=== PATIENT | female | born 1995 | race Caucasian/White ===

== ENCOUNTER 2020-10-05 | Emergency (ER) | payer SELFPAY ==
[2020-10-05] MEDS ORDERED: ALBUTEROL SUL0.083 % IN (19:47)
[2020-10-05 20:12] LABS: URINE BILIRUBIN - DIPSTICK NEGATIVE (NEGATIVE); URINE BLOOD DIPSTICK NEGATIVE (NEGATIVE); URINE CLARITY CLEAR; URINE COLOR YELLOW; URINE GLUCOSE - DIPSTICK NEGATIVE (NEGATIVE); URINE KETONE NEGATIVE (NEGATIVE); URINE LEUK ESTERASE NEGATIVE (Negative); URINE NITRITE - DIPSTICK NEGATIVE (Negative); URINE PH 6.5 (4.5-8.0); URINE PROTEIN - DIPSTICK NEGATIVE (NEG-TRACE); URINE UROBILINOGEN - DIPSTICK 0.2 E.U./dL (0.2)
[2020-10-05] MEDS ORDERED: MOTRIN400 MG/TAB PO (20:41)
== END 2020-10-05 21:00 | disposition home or self-care (01) | DRG 563 ==
PROVIDERS: Emergency Medicine
DX: S93.401A Sprain of unspecified ligament of right ankle, initial encounter (principal); X58.XXXA Exposure to other specified factors, initial encounter; Z20.2 Contact with and (suspected) exposure to infections with a predominantly sexual mode of transmission

== ENCOUNTER 2020-10-14 | Emergency (ER) | payer SELFPAY ==
[~2020-10-14] MED LIST: ALBUTEROL SUL0.083 % IN; MOTRIN400 MG/TAB PO
[2020-10-14 13:44] LABS: HEMOGLOBIN 14.1 g/dl (12.0-16.0); IMMATURE GRANULOCYTES 0.4 % (0.0-5.0); MEAN CELL VOLUME 88.6 fL CALC (80.0-100.0); MEAN CORPUSCULAR HGB 29.7 pG CALC (26.0-32.0); MEAN CORPUSCULAR HGB CONC 33.6 g/dL CAL (32.0-36.0); NEUT# 5.55 thou/uL (2.00-7.15); RED BLOOD COUNT 4.74 mill/uL (4.20-5.60); RED CELL DISTRI WIDTH 12.1 % (11.5-15.5)
[2020-10-14 13:48] LABS: URINE BILIRUBIN - DIPSTICK NEGATIVE (NEGATIVE); URINE BLOOD DIPSTICK NEGATIVE (NEGATIVE); URINE COLOR YELLOW; URINE GLUCOSE - DIPSTICK NEGATIVE (NEGATIVE); URINE KETONE NEGATIVE (NEGATIVE); URINE LEUK ESTERASE NEGATIVE (NEGATIVE); URINE PROTEIN - DIPSTICK NEGATIVE (NEG-TRACE); URINE SPECIFIC GRAVITY 1.015; URINE UROBILINOGEN - DIPSTICK 0.2 E.U./dL (0.2)
[2020-10-14 13:50] LABS: URINE NITRITE - DIPSTICK NEGATIVE (Negative)
[2020-10-14 14:03] LABS: ALBUMIN 4.4 g/dL (3.2-5.0); ALKALINE PHOSPHATASE 76 u/l (38-126); ANION GAP 13 (6-22 (CALC)); BILIRUBIN, TOTAL 0.7 mg/dL (0.0-1.4); BUN 12 mg/dL (7-17); BUN/CREATININE RATIO 17 (12-20 (CALC)); CARBON DIOXIDE 26 mmol/l (22-30); CHLORIDE 102 mmol/l (95-108); CREATININE 0.7 mg/dL (0.5-1.0); GFR > 60 ML/MIN (>=60 (CALC)); GFR FOR AFR.AMER. > 60 ML/MIN (>=60 (CALC)); LIPASE 89 u/l (23-300); POTASSIUM 4.2 mmol/l (3.5-5.1); SGOT/AST 22 u/l (14-36); SODIUM 137 mmol/l (137-146); TOTAL PROTEIN 7.5 g/dL (6.3-8.2)
== END 2020-10-14 16:20 | disposition home or self-care (01) | DRG 392 ==
DX: R10.13 Epigastric pain (principal); Z90.49 Acquired absence of other specified parts of digestive tract; Z20.822 Contact with and (suspected) exposure to COVID-19
CPT/HCPCS: Q9967

== ENCOUNTER 2020-11-29 14:13 | Emergency (ER) | payer SELFPAY ==
[~2020-11-29] VITALS: Ht 157.5 cm; Wt 97.7 kg
[2020-11-29 14:57] LABS: HEMATOCRIT 41.6 % (37.0-47.0); HEMOGLOBIN 14.1 g/dl (12.0-16.0); IMMATURE GRANULOCYTES 0.4 % (0.0-5.0); MEAN CELL VOLUME 86.1 fL CALC (80.0-100.0); MEAN CORPUSCULAR HGB 29.2 pG CALC (26.0-32.0); MEAN CORPUSCULAR HGB CONC 33.9 g/dL CAL (32.0-36.0); NEUT# 6.68 thou/uL (2.00-7.15); RED BLOOD COUNT 4.83 mill/uL (4.20-5.60); RED CELL DISTRI WIDTH 12.1 % (11.5-15.5)
[2020-11-29 14:58] LABS: URINE BILIRUBIN - DIPSTICK NEGATIVE (NEGATIVE); URINE BLOOD DIPSTICK TRACE-LYSED (NEGATIVE); URINE COLOR YELLOW; URINE GLUCOSE - DIPSTICK NEGATIVE (NEGATIVE); URINE KETONE TRACE mg/dL (NEGATIVE); URINE LEUK ESTERASE TRACE (NEGATIVE); URINE NITRITE - DIPSTICK NEGATIVE (Negative); URINE PROTEIN - DIPSTICK NEGATIVE (NEG-TRACE); URINE SPECIFIC GRAVITY 1.025; URINE UROBILINOGEN - DIPSTICK 0.2 E.U./dL (0.2)
[2020-11-29 15:14] LABS: ALBUMIN 4.2 g/dL (3.2-5.0); ALKALINE PHOSPHATASE 72 u/l (38-126); AMYLASE 47 u/l (30-110); ANION GAP 13 (6-22 (CALC)); BILIRUBIN, TOTAL 0.5 mg/dL (0.0-1.4); BUN 12 mg/dL (7-17); BUN/CREATININE RATIO 15 (12-20 (CALC)); CARBON DIOXIDE 26 mmol/l (22-30); CHLORIDE 103 mmol/l (95-108); CREATININE 0.8 mg/dL (0.5-1.0); GFR > 60 ML/MIN (>=60 (CALC)); GFR FOR AFR.AMER. > 60 ML/MIN (>=60 (CALC)); LIPASE 96 u/l (23-300); SGOT/AST 18 u/l (14-36); SODIUM 138 mmol/l (137-146); TOTAL PROTEIN 7.2 g/dL (6.3-8.2)
[2020-11-29 15:30] LABS: BETA-HCG, QUANT(RESULT NUMBER) <2 mIU/mL
[2020-11-29] MEDS ORDERED: ONDANSETRON4 MG PO (15:52)
[2020-11-29 15:55] VITALS: BP 111/68
== END 2020-11-29 16:04 | disposition home or self-care (01) | DRG 392 ==
LOC: ED 14:13
PROVIDERS: Emergency Medicine
DX: R11.2 Nausea with vomiting, unspecified (principal)